=== PATIENT | male | born 1990 | race Caucasian/White ===

== ENCOUNTER 2021-06-10 11:16 | Emergency (ER) | payer OTHER ==
[2021-06-10 11:49] LABS: Absolute Lymphocytes (CBC) 1.1 K/uL (0.7-4.9); Basophils % 0.2 % (0-1.3); Hematocrit 49.7 % (39.6-49.0); Lymphocytes % 10.4 % (15.3-44.8); MPV 8.6 fL (7.6-11.3); RBC Red Blood Cell Count 5.63 M/uL (4.33-5.43)
[2021-06-10] MEDS ORDERED: NA CHLORIDE 0.9% 1,000 ML ONE (11:56)
[2021-06-10 12:03] LABS: ALT/SGPT 264 U/L (12-78); AST/SGOT 85 U/L (15-37); Alkaline Phosphatase 92 U/L (45-117); BUN Blood Urea Nitrogen 13 mg/dL (7-18); Bicarbonate 31 mmol/L (21-32); Bilirubin Direct 0.1 mg/dL (0-0.2); Bilirubin Total 0.3 mg/dL (0.2-1.0); Glucose Level 159 mg/dL (74-106); Lipase 93 U/L (73-393); Potassium 4.7 mmol/L (3.5-5.1); Protein, Total 7.8 g/dL (6.4-8.2); Sodium Level 139 mmol/L (136-145)
--- NOTE | 2021-06-10 12:25 | RAD REPORT ---
EXAM DESCRIPTION: CT - Abdomen Pelvis W Contrast - 06/10/2021 12:14 pm CLINICAL HISTORY: Abdominal pain COMPARISON: none. TECHNIQUE: Computed axial tomography of the abdomen pelvis was obtained. 100 cc Isovue-300 was admin istered intravenously. Oral contrast was not requested which limits evaluation of bowel. All CT scans are performed using dose optimization technique as appropriate and may include automated exposure control or mA/KV adjustment according to patient size. FINDINGS: The liver, spleen, pancreas, adrenal and kidneys appear unremarkable. There is no evidence of diverticulitis. A moderate amount of stool within the colon. Normal appendix Small inguinal hernias contain fat IMPRESSION: Moderate amount stool within the colon
--- NOTE | 2021-06-10 13:12 | ER ---
Nurse's Notes [facility] Name: Suresh Rees Age: 31 yrs Sex: Male : 1990 Arrival Date: 06/10/2021 Time: 11:20 Bed 19 Private MD: Diagnosis: Upper abdominal pain, unspecified;Constipation, unspecified Presentation: 06/10 11:20 Chief complaint: Patient states: constipation that has been slowly getting worse over ss the past few months. Had small BM with alysa this morning which gave him some relief. Before today, last BM was 4 days ago. PT reports abd pain is currently 2/10. Coronavirus screen: Client denies travel out of the [place] in the last 14 days. Ebola Screen: Patient denies exposure to infectious person. Patient denies travel to an Ebola-affected area in the 21 days before illness onset. Initial Sepsis Screen: Does the patient meet any 2 criteria? No. Patient's initial sepsis screen is negative. Does the patient have a suspected source of infection? No. Patient's initial sepsis screen is negative. Risk Assessment: Do you want to hurt yourself or someone else? Patient reports no desire to harm self or others. Onset of symptoms was April 2021. 11:20 Method Of Arrival: Ambulatory ss 11:20 Acuity: MIRIAM 3 ss Historical: - Allergies: 11:22 Augmentin; ss 11:22 Suprax; ss 11:22 Codeine; ss 11:22 Doxycycline; ss - Home Meds: 11:22 Bystolic oral [Active]; Singulair Oral [Active]; Adderall XR Oral [Active]; ss multivitamin oral [Active]; Xyzal oral [Active]; - PMHx: 11:22 Hypertensive disorder; Muscular Dystrophy; ss - PSHx: 11:22 Muscle biopsy; Liver biopsy; ss - Immunization history:: Client reports receiving the 1st dose of the Covid vaccine. - Social history:: Smoking status: Patient denies any tobacco usage or history of. Patient/guardian denies using alcohol, street drugs, The patient lives with family. - Family history:: not pertinent. Screenin:35 Abuse screen: Denies threats or abuse. sl2 11:35 Nutritional screening: No deficits noted. Tuberculosis screening: No symptoms or risk sl2 factors identified. Fall Risk Secondary diagnosis (15 points) Ambulatory Aid- Crutches/Cane/Walker (15 pts). Gait- Impaired (20 pts.). Mental Status- Oriented to own ability (0 pts). Total Givens Fall Scale indicates High Risk Score (45 or more points). Fall prevention measures have been instituted. Side Rails Up X 2 Placed Close to Nursing Station Frequent Obs/Assessments Occuring Family Present and informed to notify staff if the need to leave the bedside. Assessment: 11:28 General: Appears in no apparent distress. well groomed, well developed, Behavior is sl2 calm, cooperative, Reports Constipation and mild abdominal pain 2 of 10. 11:28 Pain: Complains of pain in abdomen Pain does not radiate. Pain currently is 2 out of 10 sl2 on a pain scale. Quality of pain is described as aching, crampy, Pain began gradually, Is continuous, Alleviated by Had small pebble-like bowel movement today that gave him a little relief. Neuro: Level of Consciousness is awake, alert, obeys commands, Oriented to person, place, time, Weakness seconday to muscular dystrophy. Cardiovascular: No deficits noted. Respiratory: No deficits noted. GI: Bowel sounds present X 4 quads. Abd is soft and non tender X 4 quads. Reports constipation, Patient currently denies nausea. : No deficits noted. EENT: No deficits noted. Derm: No deficits noted. Musculoskeletal: Reports weakness in bilateral upper and lower extremities secondary to muscular dystrophy. 12:04 Reassessment: Patient transported to radiology dept for CAT scan - via stretcher. sl2 12:19 Reassessment: CAT scan completed - patient has been returned to the unit, patient shows sl2 no signs of distress or discomfort, vital signs stable, will continue to re-assess and monitor. 13:43 Reassessment: Patient is discharged, ambulance service required for transportation sl2 home, Ambulance service has been called - awaiting arrival ETA within 90 minutes. Vital Signs: 11:20 BP 111 / 70; Pulse 97; Resp 16; Temp 98.1(O); Pulse Ox 98% on R/A; Weight 81.65 kg; ss Pain 2/; 11:30 BP 114 / 72; Pulse 98; Resp 18; Temp 98.2(O); Pulse Ox 99% on R/A; sl2 12:19 BP 122 / 81; Pulse 97; Resp 18; Pulse Ox 99% on R/A; sl2 13:30 BP 108 / 78; Pulse 86; Resp 18; Temp 98.2; Pulse Ox 99% on R/A; sl2 ED Course: 11:20 Patient arrived in ED. ss 11:22 Triage completed. ss 11:25 Arm band placed on right wrist. ss 11:26 Deepika Parra MD is Attending Physician. ma2 11:30 Carolee Martinez RN is Primary Nurse. sl2 11:35 Patient has correct armband on for positive identification. Placed in gown. Bed in low sl2 position. Call light in reach. Side rails up X2. Adult w/ patient. 11:43 Inserted saline lock: 22 gauge in right antecubital area, using aseptic technique. ss Blood collected. 12:[address] via stretcher. sl2 12:14 CT Abd/Pelvis - IV Contrast Only In Process Unspecified. EDMS 12:19 Patient moved back from CT. sl2 13:10 Kemal Early MD is Referral Physician. ma2 14:35 No provider procedures requiring assistance completed. IV discontinued. sl2 Administered Medications: 11:42 Drug: NS 0.9% 1000 ml Route: IV; Rate: 1 bolus; Site: right antecubital; ss 12:30 Follow up: Response: No adverse reaction; IV Status: Completed infusion; IV Intake: sl2 1000ml 13:11 Follow up: IV Status: Completed infusion; IV Intake: 1000ml sl2 12:59 Drug: Fleet Enema (sodium phosphate) 133 ml Route: TN; sl2 13:30 Follow up: Response: No adverse reaction sl2 Intake: 12:30 IV: 1000ml; Total: 1000ml. sl2 13:11 IV: 1000ml; Total: 2000ml. sl2 Outcome: 13:11 Discharge ordered by . ma2 14:35 Discharged to home via ambulance, [facility] sl2 14:35 Condition: stable 14:35 Discharge instructions given to patient, family, Instructed on discharge instructions, follow up and referral plans. no drinking with medication, medication usage, Demonstrated understanding of instructions, follow-up care, medications, Prescriptions given X 2. 14:36 Patient left the ED. sl2 Signatures: Dispatcher [facility] Lucrecia Roper RN RN Deepika Parra MD MD va2 Carolee Martinez RN RN sl2 Corrections: (The following items were deleted from the chart) 12:22 12:19 Reassessment: CAT scan completed - patient has been returned to the unit sl2 sl2
--- NOTE | 2021-06-10 13:12 | EDPHYS ---
Physician Documentation [facility] Name: Suresh Rees Age: 31 yrs Sex: Male : 1990 Arrival Date: 06/10/2021 Time: 11:20 Bed 19 Private MD: ED Physician Deepika Parra HPI: 06/10 12:35 This 31 yrs old Male presents to ER via Ambulatory with complaints of ma2 Constipation. 12:35 The patient presents with abdominal distention constipation. Onset: The ma2 symptoms/episode began/occurred gradually, 1 day(s) ago. Associated signs and symptoms: Pertinent negatives:. 12:44 Severity of pain: At its worst the pain was moderate in the emergency department the ma2 pain is unchanged. The patient has experienced similar episodes in the past. here with constipation. Historical: - Allergies: 11:22 Augmentin; ss 11:22 Suprax; ss 11:22 Codeine; ss 11:22 Doxycycline; ss - Home Meds: 11:22 Bystolic oral [Active]; Singulair Oral [Active]; Adderall XR Oral [Active]; ss multivitamin oral [Active]; Xyzal oral [Active]; - PMHx: 11:22 Hypertensive disorder; Muscular Dystrophy; ss - PSHx: 11:22 Muscle biopsy; Liver biopsy; ss - Immunization history:: Client reports receiving the 1st dose of the Covid vaccine. - Social history:: Smoking status: Patient denies any tobacco usage or history of. Patient/guardian denies using alcohol, street drugs, The patient lives with family. - Family history:: not pertinent. ROS: 12:44 Constitutional: Negative for fever, chills, and weight loss. ma2 12:44 All other systems are negative. Exam: 12:44 Constitutional: This is a well developed, well nourished patient who is awake, alert, ma2 and in no acute distress. Head/Face: Normocephalic, atraumatic. Eyes: Pupils equal round and reactive to light, extra-ocular motions intact. Lids and lashes normal. Conjunctiva and sclera are non-icteric and not injected. Cornea within normal limits. Periorbital areas with no swelling, redness, or edema. ENT: Nares patent. No nasal discharge, no septal abnormalities noted. Tympanic membranes are normal and external auditory canals are clear. Oropharynx with no redness, swelling, or masses, exudates, or evidence of obstruction, uvula midline. Mucous membranes moist. Neck: Trachea midline, no thyromegaly or masses palpated, and no cervical lymphadenopathy. Supple, full range of motion without nuchal rigidity, or vertebral point tenderness. No Meningismus. Chest/axilla: Normal chest wall appearance and motion. Nontender with no deformity. No lesions are appreciated. Cardiovascular: Regular rate and rhythm with a normal S1 and S2. No gallops, murmurs, or rubs. Normal PMI, no JVD. No pulse deficits. Respiratory: Lungs have equal breath sounds bilaterally, clear to auscultation and percussion. No rales, rhonchi or wheezes noted. No increased work of breathing, no retractions or nasal flaring. Abdomen/GI: Soft, non-tender, with normal bowel sounds. No distension or tympany. No guarding or rebound. No evidence of tenderness throughout. Back: No spinal tenderness. No costovertebral tenderness. Full range of motion. Skin: Warm, dry with normal turgor. Normal color with no rashes, no lesions, and no evidence of cellulitis. MS/ Extremity: Pulses equal, no cyanosis. Neurovascular intact. Full, normal range of motion. Neuro: Awake and alert, GCS 15, oriented to person, place, time, and situation. Cranial nerves II-XII grossly intact. Motor strength 5/5 in all extremities. Sensory grossly intact. Cerebellar exam normal. Normal gait. Vital Signs: 11:20 BP 111 / 70; Pulse 97; Resp 16; Temp 98.1(O); Pulse Ox 98% on R/A; Weight 81.65 kg; ss Pain 2/10; 11:30 BP 114 / 72; Pulse 98; Resp 18; Temp 98.2(O); Pulse Ox 99% on R/A; sl2 12:19 BP 122 / 81; Pulse 97; Resp 18; Pulse Ox 99% on R/A; sl2 13:30 BP 108 / 78; Pulse 86; Resp 18; Temp 98.2; Pulse Ox 99% on R/A; sl2 MDM: 11:26 Patient medically screened. ma2 12:44 Differential diagnosis: gastritis, gastroesophageal reflux disease, Irritable bowel ma2 syndrome, pancreatitis. 13:10 Data reviewed: vital signs, nurses notes. Counseling: I had a detailed discussion with ma2 the patient and/or guardian regarding: the historical points, exam findings, and any diagnostic results supporting the discharge/admit diagnosis, the presence of at least one elevated blood pressure reading (>120/80) during this emergency department visit, the need for outpatient follow up. Response to treatment: the patient's symptoms have markedly improved after treatment. 06/10 11:27 Order name: Basic Metabolic Panel; Complete Time: 12:27 ma2 06/10 11:27 Order name: CBC with Diff; Complete Time: 12:27 ma2 06/10 11:27 Order name: Hepatic Function; Complete Time: 12:27 ma2 06/10 11:27 Order name: Lipase; Complete Time: 12:27 ma2 06/10 11:27 Order name: CT Abd/Pelvis - IV Contrast Only; Complete Time: 12:27 ma2 06/10 11:27 Order name: IV Saline Lock; Complete Time: 11:43 ma2 06/10 11:27 Order name: Labs collected and sent; Complete Time: 11:43 ma2 Administered Medications: 11:42 Drug: NS 0.9% 1000 ml Route: IV; Rate: 1 bolus; Site: right antecubital; ss 12:30 Follow up: Response: No adverse reaction; IV Status: Completed infusion; IV Intake: sl2 1000ml 13:11 Follow up: IV Status: Completed infusion; IV Intake: 1000ml sl2 12:59 Drug: Fleet Enema (sodium phosphate) 133 ml Route: MI; sl2 13:30 Follow up: Response: No adverse reaction sl2 Disposition Summary: 06/10/21 13:11 Discharge Ordered Location: Home ma2 Condition: Stable ma2 Diagnosis - Upper abdominal pain, unspecified ma2 - Constipation, unspecified ma2 Followup: ma2 - With: Kemal Early MD - When: 1 - 2 days - Reason: Continuance of care Discharge Instructions: - Discharge Summary Sheet ma2 - Chronic Constipation ma2 Forms: - Medication Reconciliation Form ma2 - Thank You Letter ma2 - Antibiotic Education ma2 - Prescription Opioid Use ma2 Prescriptions: - Colace 100 mg Oral Tablet - take 1 tablet by ORAL route every 12 hours; 14 tablet; Refills: 0, Product ma2 Selection Permitted - Fleet Enema Extra - take 1 vial by RECTAL route 2 times per day; 6 vial; Refills: 0, Product ma2 Selection Permitted Signatures: Dispatcher [employer] Lucrecia Calixto RN RN ss Deepika Parra MD MD ma2 Carolee Martinez RN RN sl2
[2021-06-10] MEDS ORDERED: FLEET ENEMA ADULT PR ONE (14:23)
[2021-06-10 14:49] VITALS: TEMP 98.2; O2SAT 99
[2021-06-10 14:52] VITALS: BP 108/78
== END 2021-06-10 14:36 | disposition home or self-care (01) ==
LOC: ER 11:16
DX: K59.00 Constipation, unspecified (principal); I10 Essential (primary) hypertension; Z88.1 Allergy status to other antibiotic agents; Z88.5 Allergy status to narcotic agent; Z88.8 Allergy status to other drugs, medicaments and biological substances
CPT/HCPCS: 85025; 80048; 36415; 82565; 80076; 83690; 74177; 96360; 99284; Q9967; J7030